=== PATIENT | male | born 1985 | race Caucasian/White ===

== ENCOUNTER 2024-04-09 10:42 | Emergency (ER) | payer OTHER, SELFPAY ==
[2024-04-09 10:48] VITALS: BP 171/100
[2024-04-09 11:18] VITALS: BMI 26.4
[2024-04-09 11:22] VITALS: BP 161/107
[2024-04-09 11:25] VITALS: BP 157/113
[2024-04-09 11:50] VITALS: BP 154/96
[2024-04-09 11:54] LABS: % Basophils 1.4 % (0-2); % Eosinophils 1.2 % (0-6); % Immature Granulocytes 0.6 % (0-0.5); % Lymphocytes 22.4 % (20.5-51.1); % Monocytes 11.5 % (1.7-9.3); % Neutrophils 62.9 % (42.2-75.2); Absolute Basophils 0.1 10^3/uL (0-0.2); Absolute Eosinophils 0.1 10^3/uL (0-0.7); Absolute Immature Granulocytes 0.1 10^3/uL (0-0.05); Absolute Neutrophils 5.7 10^3/uL (1.4-6.5); Hematocrit 42.1 % (39.0-52.0); Hemoglobin 14.2 g/dL (13.0-18.0); Mean Corp Hgb Conc. 33.7 g/dL (33.0-37.0); Mean Corpuscular Hgb 27.7 pg (27.0-31.0); Mean Corpuscular Volume 82.2 fL (80.0-94.0); Mean Platelet Volume 9.2 fL (7.4-10.4); Nucleated Red Blood Cells % 0 % (-); Platelet Count 418 10^3/uL (130-400); Red Blood Cell Count 5.12 10^6/uL (4.70-6.10); Red Cell Dist. Width 16.5 % (11.5-14.5)
[2024-04-09 12:24] LABS: ALT (SGPT) 19 U/L (0-50); AST (SGOT) 26 U/L (17-59); Albumin 5.1 g/dl (3.5-5.0); Alkaline Phosphatase 76 U/L (38-126); Blood Urea Nitrogen 7 mg/dl (9-20); Calcium 9.9 mg/dl (8.4-10.2); Carbon Dioxide 27 mmol/L (22-30); Chloride 101 mmol/L (98-107); Estimated Creatinine Clearance > 125 ml/min; Glucose 96 mg/dl (70-99); Potassium 4.6 mmol/L (3.5-5.1); Sodium 138 mmol/L (135-145); Total Bilirubin 0.5 mg/dl (0.2-1.3); Total Protein 7.6 g/dl (6.3-8.2); eGFR > 60.00
--- NOTE | 2024-04-09 12:41 | ED.GENMED ---
History of Present Illness
General
Chief Complaint: Flank Pain
Source: patient and significant other
Exam Limitations: none
Time Seen by Provider: 04/09/24 12:02
Nursing documentation reviewed up to this point in time: agreed with
History of Present Illness
History of Present Illness:
Patient is a 38-year-old male who presents for evaluation. Patient several complaints. Patient's left flank pain for the past year. He does feel that at times it is worse with movement reports at times it is worse with touching the area. He
denies any urinary frequency urgency or blood in the urine. He also for the past week has had lower back pain. He believes he may have pulled his back at work. 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 He has been
taking ibuprofen without relief. He denies any radiation of pain. He reports he has a good appetite no nausea vomiting fever chills no weight loss.
In addition he also noticed some bright red blood from rectum for the past one year. His stools are brown but he has had some bright red blood in the toilet. reports he will not call GI to schedule an appointment. He denies any abdominal
pain nausea vomiting weight loss. He is a drinker and drinks 6-8 beers per night reports he does not drink in the day. He is a smoker.
Past History
Past History
ED Past Medical History: None
Social History
Tobacco: Smoker
Review of Systems
Review of Systems
Allergies reviewed?: Yes
All Other Systems: ROS reviewed and negative except as documented in HPI and ROS
Constitutional: Reports no symptoms
EENT: Reports no symptoms
Respiratory: Reports no symptoms
ABD/GI: Reports other (Bright red blood per rectum); Denies abdominal pain, nausea, vomiting or diarrhea
: Reports flank pain (left flank pain )
Musculoskeletal: Reports no symptoms
Skin: Reports no symptoms
Neurological: Reports no symptoms
Psychiatric: Reports no symptoms
Phy Exam
General Physical Exam
General Presentation: no apparent distress
General age: appears stated age
General Skin: warm and dry
General Habitus: normal
General Mental: alert
General Hydration: appears well hydrated
Cardiovascular Exam
Cardiovascular Exam: regular rate/rhythm, no murmur and normal peripheral pulses
Pulmonary Exam
Pulmonary Exam: lungs clear
Gastrointestinal Exam
Gastrointestinal Exam: normal bowel sounds, non tender, soft and other (Rectal exam small external hemorrhoid no stool on rectal exam)
Neurological Exam
Neurological Exam: alert and oriented x3
Musculoskeletal Exam
Musculoskeletal Exam: full ROM
Skin Exam
Skin Exam: normal color and warm/dry
Psychiatric Exam
Psychiatric Exam: normal mood/affect
Course
Orders/Labs/Results
Orders:
Orders
04/09/24 11:40
Complete Blood Count/With Diff Urgent
Comprehensive Metabolic Panel Urgent
Lipase Urgent
Comment: ADDON
Urinalysis Reflex To Culture Urgent
Date Specimen was Collected: 04/09/24
Time Specimen was Collected: 11:39
04/09/24 13:01
Ketorolac [Toradol] 15 mg IV NOW STA
diazePAM [Valium Injection] 2 mg IV NOW STA
04/09/24 13:04
Add On- LAB Urgent
Tests Added?: lipase
04/09/24 13:05
CT Abd/pel Without Iv Or Oral Urgent
Comment:
Reason For Exam: left flank pain
Abnormal Lab Results
04/09/24
11:40
RDW 16.5 H %
(11.5-14.5)
Plt Count 418 H 10^3/uL
(130-400)
Abs Immat Gran (auto) 0.1 H 10^3/uL
(0-0.05)
Absolute Monos (auto) 1.0 H 10^3/uL
(0.1-0.6)
Immature Gran % 0.6 H %
(0-0.5)
Monocytes % 11.5 H %
(1.7-9.3)
BUN 7 L mg/dl
(9-20)
Creatinine 0.6 L mg/dL
(0.7-1.3)
Albumin 5.1 H g/dl
(3.5-5.0)
04/09/24 11:40
04/09/24 11:40
Vital Signs
Initial and Last Documented VS:
Initial Vital Signs
Temp Pulse Resp BP Pulse Ox
98.6 F 92 17 171/100 99
04/09/24 10:48 04/09/24 10:48 04/09/24 10:48 04/09/24 10:48 04/09/24 10:48
Last Documented Vital Signs
Temp Pulse Resp BP Pulse Ox
97.9 F 92 17 154/96 99
04/09/24 11:25 04/09/24 10:48 04/09/24 10:48 04/09/24 11:50 04/09/24 10:48
MDM/Problems Addressed
Differential Diagnosis Includes:
Not limited to muscular pain, muscle strain, GI bleed, hemorrhoids less likely renal colic
MDM/Problems Addressed:
Patient is a 38-year-old male who has complaints of left-sided back flank pain for the past year along with intermittent bright red rectal bleeding. In addition he works as a construction craft laborer and for the past 1 week has had low back pain he
feels that he pulled his back out. reports that they are not really happy with family doctor's office and they have not done anything for him however patient also has not wanted to follow-up with any specialist such as GI.
Patient does admit to daily alcohol use 6-8 drinks per day I did offer patient information with alcohol sensation but he declines.
He presents awake alert no acute distress patient is back pain and lower back and even left lateral back worse with movement consistent with muscle type pain. No neurological deficits. No bowel bladder incontinence. Normal strength. was
concerned about left back/flank pain for the past year CAT scan was done and unremarkable there is no bony osseous lesions and no abnormality in the liver spleen kidneys , pancreas adrenal glands or gallbladder.
Regarding hemorrhoids will have patient follow-up with GI physician as well as family doctor will DC with ibuprofen Tylenol will hold off on muscle lectures as patient uses alcohol daily will prescribe lidocaine patch.
Chronic conditions affecting care:
daily alcohol use
*Radiology
Radiology exam reviewed: radiology read reviewed
*Pulse Oximetry
Patient hypoxic: no
*Critical Care Note
Total Time (30-74mins, 75-104mins- exclusive of procedures): Not Applicable
ED Attending Note
-
Portions of this chart may have been created with voice recognition software.� Occasional wrong word or��sound alike� substitutions may have occurred due to the inherent limitations of voice recognition software.
Discharge Plan
Departure
Patient Disposition: Home (Routine Discharge)
Date of Disposition: 04/09/24
Time of Disposition: 14:13
Patient with high blood pressure during this ER visit?: Yes
Condition: Fair
Covid-19: Not Applicable
Discharge Problem:
Back pain, Bright red rectal bleeding
Instructions: Back Pain, BLOOD PRESSURE
Prescriptions:
New
lidocaine 5 % adhesive patch,medicated
1 patch topical DAILY Qty: 15 0RF
Rx Instructions:
Remove after 12 hours
Referrals:
Leti Arvizu MD [Active] -
Hemanth Eller MD [Family Provider] -
Activity Restrictions/Additional Instructions:
Follow-up with family doctor in next several days for reevaluation of back pain and bright red rectal bleeding. rectal bleeding is likely caused from hemorrhoids. Back pain is likely muscular.
Regarding back pain take Tylenol , Lidocaine patch, warm moist heat. Lidocaine patch was and your pharmacy
Follow-up with GI as discussed. call Wednesday to make an appointment soon as possible for further evaluation of bright red rectal bleeding is likely hemorrhoids. Return if any worsening of symptoms.
Interventions
Interventions:
*Risk Screen - Suicide Last Done: 04/09/24 11:20
*General Assessment Last Done: 04/09/24 11:20
*Neglect/Abuse Screening Last Done: 04/09/24 11:20
*ED COVID-19 Vaccine History Last Done: 04/09/24 11:26
FS-Ffpwhb-[id number] Assessment Last Done: 04/09/24 11:21
ED-Male Genitourinary Assessment Last Done: 04/09/24 11:21
Discharge Date and Time
Print Language: THAI
[2024-04-09 13:04] LABS: Urine Albumin Negative (Neg - Trace); Urine Bilirubin Negative (Negative); Urine Character Clear (Clear); Urine Color Yellow; Urine Glucose Negative (Negative); Urine Ketone Negative (Negative); Urine Leukocyte Negative (Negative); Urine Nitrite Negative (Negative); Urine Occult Blood Negative (Negative); Urine Specific Gravity 1.005 (<1.030); Urine Urobilinogen Negative (Neg - 1+); Urine pH 6.5 (5.0-9.0)
[2024-04-09] MEDS: VALIUM INJECTION 2 MG IV (13:07)
[2024-04-09] MEDS: TORADOL 15 MG IV (13:08)
[2024-04-09 13:23] LABS: Lipase 66 U/L (23-300)
[2024-04-09 14:33] VITALS: BP 142/90
== END 2024-04-09 14:37 | disposition home or self-care (01) ==
LOC: EMR 10:42
PROVIDERS: EMERGENCY PHYSICIAN Emergency Medicine; FAMILY PHYSICIAN Family Medicine
DX: R10.9 Unspecified abdominal pain (principal); M54.9 Dorsalgia, unspecified; K62.5 Hemorrhage of anus and rectum; K64.4 Residual hemorrhoidal skin tags; R03.0 Elevated blood-pressure reading, without diagnosis of hypertension; F10.90 Alcohol use, unspecified, uncomplicated; F17.200 Nicotine dependence, unspecified, uncomplicated
CPT/HCPCS: 99284; 96374; 96375; 74176; 80053; 81003; 83690; 85025